=== PATIENT | female | born 1970 | race Caucasian/White ===

== ENCOUNTER → 2017-07-15 | Outpatient (CLI) | payer OTHER | LOC: BMCIMAGING 11:23 | PROVIDERS: ATTEND Registered Nurse General Practice | DX: M79.652 Pain in left thigh (principal); M54.9 Dorsalgia, unspecified; M51.24 Other intervertebral disc displacement, thoracic region; M51.37 Other intervertebral disc degeneration, lumbosacral region; M43.06 Spondylolysis, lumbar region; M85.30 Osteitis condensans, unspecified site ==

== ENCOUNTER → 2017-08-11 | Outpatient (CLI) | payer OTHER | LOC: FIMAGING 09:54 | PROVIDERS: ATTEND Registered Nurse General Practice | DX: R10.30 Lower abdominal pain, unspecified (principal) | CPT/HCPCS: G0202 ==

== ENCOUNTER → 2017-08-18 | Outpatient (CLI) | payer OTHER | LOC: FIMAGING 12:48 | PROVIDERS: ATTEND Registered Nurse General Practice | DX: I87.2 Venous insufficiency (chronic) (peripheral) (principal) ==

== ENCOUNTER → 2017-08-19 | Outpatient (CLI) | payer OTHER | LOC: BMCIMAGING 10:09 | PROVIDERS: ATTEND Physician Assistant | DX: M79.672 Pain in left foot (principal); M20.22 Hallux rigidus, left foot; M20.21 Hallux rigidus, right foot ==

== ENCOUNTER → 2017-09-03 | Outpatient (CLI) | payer OTHER | LOC: FIMAGING 12:51 | PROVIDERS: ATTEND Radiology Diagnostic Radiology | DX: I86.2 Pelvic varices (principal); N94.89 Other specified conditions associated with female genital organs and menstrual cycle ==

== ENCOUNTER → 2018-08-18 | Outpatient (CLI) | payer OTHER | LOC: FIMAGING 15:24 | PROVIDERS: ATTEND Family Medicine | DX: Z12.31 Encounter for screening mammogram for malignant neoplasm of breast (principal) ==

== ENCOUNTER → 2018-09-02 | Outpatient (CLI) | payer OTHER | LOC: FIMAGING 15:03 | PROVIDERS: ATTEND Family Medicine | DX: N63.23 Unspecified lump in the left breast, lower outer quadrant (principal) ==

== ENCOUNTER → 2018-10-27 | Day surgery (SDC) | payer OTHER ==
[~2018-10-27] MED LIST: BUPIVACAINE 0.5% 30 ML SDV ONE; LIDOCAINE 1% 300 MG/30 ML SDV ONE; THROMBIN (BOVINE) 5,000 UNIT VIAL TP ONE
== END | disposition home or self-care (01) ==
LOC: FIMAGING 07:17
PROVIDERS: ATTEND Family Medicine
DX: D24.2 Benign neoplasm of left breast (principal); N60.12 Diffuse cystic mastopathy of left breast; N61.0 Mastitis without abscess; Z80.3 Family history of malignant neoplasm of breast